=== PATIENT | male | born 2000 ===

== ENCOUNTER 2021-11-16 17:53 | Emergency (ER) | payer MEDICAID, OTHER ==
[~2021-11-16] VITALS: Ht 188 cm; Wt 98.9 kg
[2021-11-16] MEDS ORDERED: TETANUS-DIPTH-ACEL PERTUSSIS 0.5ML SYR Tdap IM ONE (21:45)
[2021-11-16 22:30] VITALS: BP 99/53
== END 2021-11-16 22:30 | disposition home or self-care (01) ==
LOC: ER 17:53
DX: S61.451A Open bite of right hand, initial encounter (principal); S60.311A Abrasion of right thumb, initial encounter; W54.0XXA Bitten by dog, initial encounter; Y93.89 Activity, other specified; Y92.89 Other specified places as the place of occurrence of the external cause; Y99.8 Other external cause status
CPT/HCPCS: 12001; 73130; 90471; 90715